=== PATIENT | female | born 1950 | race Two or more races ===

== ENCOUNTER 2016-05-16 12:14 | Emergency (ER) | payer BC ==
[2016-05-16 12:20] VITALS: BP 145/69; PULSE 52; RESP 16; TEMP 98.1; O2SAT 95
[2016-05-16] MEDS ORDERED: PROPARACAINE 0.5% 15 ML OPHT DROP ONE (13:11)
[2016-05-16] MEDS ORDERED: PROPARACAINE 0.5% 15 ML OPHT DROP RTEYE ONE (13:12)
--- NOTE | 2016-05-16 13:20 | UCPHY ---
H & P Patient Type: New Chief Complaint Nursing Narrative: R EYE PAIN, MAY HAVE SCRATCHED OR FOREIGN BODY HPI/ROS: CHIEF COMPLAINT: Right eye pain HISTORY OF PRESENT ILLNESS: The patient is a 65 year old woman, with a history of cataracts surgery, presenting with three days of right eye pain and itching. She rubbed her eye three nights ago and started experiencing mild right eye pain. This pain has been waxing and waning, usually worse in the evenings. She feels as if something is stuck under her upper eyelid, but this sensation is not constant, it comes and goes. It is associated with mild eye injection. No eye drainage or matting. She wears glasses, but not contact lenses. She denies vision changes. She has not otherwise been ill. REVIEW OF SYSTEMS: A ten point review of systems was performed and is negative with the exception of the items mentioned in the HPI. Source: Patient Exam Limitations: No limitations - Personal History Current Tetanus Diphtheria and Acellular Pertussis (TDAP): Yes Tetanus Vaccine Date: < 10 YEARS - Medical/Surgical History Hx Asthma: No Hx Chronic Respiratory Disease: No Hx Diabetes: No Hx Cardiac Disease: Yes Hx Renal Disease: No Hx Cirrhosis: No Hx Alcoholism: No Hx HIV/AIDS: No Hx Splenectomy or Spleen Trauma: No Other PMH: ABLATION FOR A FIB, MITRAL VALVE PROLAPSE - Family History Significant Family History: No pertinent family hx - Social History Smoking Status: Never smoked Additional Social History: Recently moved to [place] from [place]. - Physical Exam Exam: General Appearance: Alert. Vital signs reviewed. Eyes: Visual Acuity: noted from Nurse's notes. Pupils:equal round and reactive to light, EOMI, Optic discs are sharp. Lids: no edema or swelling, lid was averted and no foreign body was identified Skin: no proptosis, no periorbital erythema or swelling, no vesicles Conjunctivae: mild right eye injected, no discharge Cornea: exam with fluorescein shows no corneal abrasion Anterior chamber:normal, no hyphema or hypopyon. Intraocular pressure of 15. ENT, Mouth: Mucous membranes are moist, no oropharyngeal erythema or edema. Neck: No lymphadenopathy, supple. Respiratory: Lungs are clear to auscultation. Cardiovascular: Regular rate and rhythm; no murmur, rub, or gallop. Skin: Warm and dry, no rashes on exposed skin, normal color. Neurological: Alert and oriented. Moving all four extremities easily and equally. Psychiatric: Normal affect. Constitutional: Initial Vital Signs Temperature (C) 36.7 C 05/16/16 12:16 Heart Rate 52 L 05/16/16 12:16 Respiratory Rate 16 05/16/16 12:16 Blood Pressure 145/69 H 05/16/16 12:16 O2 Sat (%) 95 05/16/16 12:16 O2 Delivery Mode Room Air Allergies/Adverse Reactions: No Known Allergies Allergy (Unverified 05/16/16 12:20) Home Medications: Medication Instructions Recorded ALPRAZolam 05/16/16 Atenolol 05/16/16 Medical Decision Making ED Course/Re-evaluation: The patient presents with 3 days of right eye pain and discomfort. Symptoms are waxing and waning. They discomfort is worse with blinking and by the end of the day. There is no injection, drainage, or sign of infection such as conjunctivitis. I do not find evidence of iritis. I do not see signs of herpes zoster on slit lamp exam. There is no corneal abrasion or foreign body on exam. The intraocular pressure is normal at 15 and I do not suspect glaucoma. I discussed that I do not know what is causing her symptoms. Her eye has been irrigated with saline. She continues to feel the sensation of foreign body. Lids were everted again, with no foreign body identified. I have advised a watchful waiting approach. There is no loss of vision so I do not suspect retinal detachment or vascular occlusion. She will return tomorrow if she experiences continued pain for re-evaluation. If she experiences increasing pain, redness, vision change, drainage, or other symptoms, then she will return immediately for evaluation. I spoke with ophthalmology sales correspondence clerk, Dr. Philippe, who agrees that she can safely be discharged. She will see the patient in follow up. Differential Diagnosis: I considered a differential diagnosis that includes but is not limited to corneal abrasion, retained foreign body, iritis, conjunctivitis, glaucoma, and herpes. - Data Points Medications Given: Discontinued Medications Fluorescein Sodium (Zthkn-T-[id number]) 1 mg OP EDNOW ONE Stop: 05/16/16 13:22 Last Admin: 05/16/16 13:21 Dose: 1 mg Proparacaine HCl (Alcaine 0.5%) 1 drops RTEYE ONCE ONE Stop: 05/16/16 13:13 Last Admin: 05/16/16 13:12 Dose: 1 drop Departure - Departure Disposition: Home, Routine, Self-Care Clinical Impression: Acute eye pain Condition: Good Instructions: Eye Pain (ED) Additional Instructions: Return to the [facility] or to an emergency department tomorrow if you have continued pain. You should return immediately to the [facility] or seek care from an emergency department if you experience increasing eye pain, redness, vision change, drainage, or other symptoms. I am referring you to Dr. Philippe, lumber driver. You can also call her office (even after hours) and arrange an appointment with her. Referrals: Kailey Philippe MD [Non Staff Provider (MD)] - As per Instructions ( Opthalmologist) - PQRS PQRS Measurement: Not applicable. Report Scribed for: Daphnie Jimenez Report Scribed by: Caity Bowles Date of Report: 05/16/16 Time of Report: 14:06 Physician Review and Approval Statement: 05/16/16 16:11 Portions of this note were transcribed by the medical information specialist. I, Dr. Daphnie Jimenez, personally performed the history, physical exam, and medical decision- making; and confirmed the accuracy of the information in the transcribed note.
[2016-05-16] MEDS ORDERED: FLUORESCEIN SODIUM 1 MG STRIP OP ONE (13:21)
== END 2016-05-16 15:25 | disposition home or self-care (01) ==
LOC: CED 12:14
DX: H57.11 Ocular pain, right eye (principal)
CPT/HCPCS: G0463-PO

== ENCOUNTER → 2016-12-15 | Outpatient (CLI) | payer OTHER | LOC: CIMAGING 08:37 | PROVIDERS: ATTEND Family Medicine | DX: Z12.31 Encounter for screening mammogram for malignant neoplasm of breast (principal) | CPT/HCPCS: G0202 ==

== ENCOUNTER → 2017-08-03 | Outpatient (CLI) | payer OTHER | LOC: BRMIMAGING 08:30 | PROVIDERS: ATTEND Family Medicine | DX: Z13.820 Encounter for screening for osteoporosis (principal); M85.89 Other specified disorders of bone density and structure, multiple sites; Z78.0 Asymptomatic menopausal state ==

== ENCOUNTER → 2018-02-18 | Outpatient (CLI) | payer OTHER, MEDICARE | LOC: CIMAGING 16:13 | PROVIDERS: ATTEND Family Medicine | DX: S69.92XA Unspecified injury of left wrist, hand and finger(s), initial encounter (principal); W19.XXXA Unspecified fall, initial encounter | CPT/HCPCS: 73110-PO ==

== ENCOUNTER → 2018-03-02 | Outpatient (CLI) | payer OTHER, MEDICARE | LOC: FIMAGING 13:15 | PROVIDERS: ATTEND Family Medicine | DX: Z12.31 Encounter for screening mammogram for malignant neoplasm of breast (principal) ==

== ENCOUNTER → 2018-07-29 | Outpatient (CLI) | payer OTHER, MEDICARE | LOC: CIMAGING 14:15 ==